=== PATIENT | male | born 1980 | race Caucasian/White ===

== ENCOUNTER 2018-10-08 20:13 | Emergency (ER) | payer MEDICAID ==
[~2018-10-08] VITALS: Ht 182.9 cm; Wt 134.4 kg
[2018-10-08 20:16] VITALS: BP 127/76
[2018-10-08] MEDS ORDERED: HYDROcodone/APAP 5/325 TABLET ONE (20:26)
--- NOTE | 2018-10-08 20:28 | NUR ---
MEDICATED FOR LEFT DENTAL PAIN
[2018-10-08] MEDS ORDERED: HYDROcodone/APAP 5/325 TABLET PO ONE (20:30)
== END 2018-10-08 20:40 | disposition home or self-care (01) ==
LOC: ED 20:34
DX: K04.7 Periapical abscess without sinus (principal)
CPT/HCPCS: 99283

== ENCOUNTER 2020-11-06 16:33 | Emergency (ER) | payer MEDICAID ==
[~2020-11-06] VITALS: Ht 182.9 cm; Wt 153.8 kg
--- NOTE | 2020-11-06 16:40 | NUR ---
Pt ambulatory to room with technician helper instrument from triage with steady gait and good skin color noted. Pt changing into gown now with warm blanket brought to room by technician helper instrument.
--- NOTE | 2020-11-06 17:01 | NUR ---
Cloudy yellow uop noted and UA sample sent to lab. 300mL out total in urinal. Pt then taken to CT by fuel verification technician on [facility].
--- NOTE | 2020-11-06 17:13 | NUR ---
Pt back to room without acute changes noted.
[2020-11-06 17:14] LABS: MICROSCOPIC AUTO
--- NOTE | 2020-11-06 17:19 | NUR ---
VS reassessed. Noted no BP on triage VS. MD notified via ED board notes section of current BP. Call light in reach and lights dimmed.
--- NOTE | 2020-11-06 17:43 | NUR ---
at bedside for discussion of findings and suggested plan of care.
--- NOTE | 2020-11-06 18:00 | NUR ---
Pt up for d/c, but paperwork not available yet. Noted d/c papers next to MD's work station but prescription needs MD signature. Pt notified of delay and awaiting MD return for signature.
[2020-11-06 18:16] VITALS: BP 122/65
== END 2020-11-06 18:18 | disposition home or self-care (01) ==
LOC: ED 17:50
DX: S39.012A Strain of muscle, fascia and tendon of lower back, initial encounter (principal); M54.12 Radiculopathy, cervical region; R00.0 Tachycardia, unspecified; X58.XXXA Exposure to other specified factors, initial encounter; Y93.89 Activity, other specified; Y92.89 Other specified places as the place of occurrence of the external cause; Y99.8 Other external cause status
CPT/HCPCS: 72125; 81001; 99284